=== PATIENT | female | born 1930 | race African-American/Black ===

== ENCOUNTER 2017-11-15 09:31 | Emergency (ER) | payer OTHER ==
[~2017-11-15] VITALS: Ht 162.6 cm; Wt 65.8 kg
--- NOTE | ~2017-11-15 | EKG ---
[address] [place] [address] [place] [address] ELECTROCARDIOGRAM REPORT Name: DEMOND IRENE Room #: DEP CHRISTOPHER Larson#: [id number] Admission: 11/15/17 Attend Phys: Discharge: 11/15/17 Date of : 34 Report #: [id number] THIS REPORT FOR: //name// [facility] ED Test Date: 2017-11-15 Test Time: 09:40:57 Pat Name: DEMOND IRENE Department: Room: 170 Gender: F Fine Craft Artist: Feliciano OLVERA : 1930 Requested By: Luz Tomlinson Order Number: [id number] MD: Dedrick Don Measurements Intervals [place] Rate: 92 P: 55 CA: 192 QRS: 4 QRSD: 88 T: 8 QT: 344 QTc: 426 Interpretive Statements Sinus rhythm Poor R wave progression Nonspecific ST segment abnormality Compared to ECG 12/05/2012 10:05:25 Sinus tachycardia no longer present Electronically Signed On 11-16-2017 8:16:29 CDT by Dedrick Don [email or web address] <ELECTRONICALLY SIGNED> By: Dedrick Don MD, [facility] 11/16/17 0816 9 9 Dedrick Don MD, [facility] /EPI
[~2017-11-15 09:31] MED LIST: NOHOMEMEDICATIONS
[2017-11-15 09:37] VITALS: BP 154/83
[2017-11-15 10:05] LABS: ABSOLUTE NEUTROPHILS 2.3 thou/uL (1.4-8.2); EOSINOPHILS 3.6 % (0.0-3.0); HEMATOCRIT 40.4 % (37.0-47.0); HEMOGLOBIN 13.6 gm/dL (12.0-15.0); LYMPHOCYTES 32.3 % (24.0-44.0); MCH 31.6 pg (26.0-34.0); MCHC 33.7 g/dL (28.0-37.0); MCV 93.7 fL (80.0-100.0); MONOCYTES 11.5 % (1.0-8.0); PLATELET COUNT 187 thou/uL (150-400); POLYS 51.6 % (36.0-66.0); RBC 4.31 mil/uL (4.20-5.00); RDW 12.9 % (10.5-14.5); WBC 4.4 thou/uL (4.0-11.0)
[2017-11-15 10:12] LABS: ANION GAP 11 mmol/L (7-16); BUN 17 mg/dL (7-18); CALCIUM 9.7 mg/dL (8.5-10.1); CHLORIDE 103 mmol/L (98-107); CO2 25 mmol/L (21-32); GLUCOSE 120 mg/dL (74-106); POTASSIUM 3.9 mmol/L (3.5-5.1); SODIUM 139 mmol/L (136-145)
[2017-11-15 10:20] LABS: SGOT 20 U/L (15-37); SGPT 21 U/L (30-65); TOTAL BILIRUBIN 0.4 mg/dL (<0.1-1.0); TOTAL PROTEIN 7.8 g/dL (6.4-8.2); TROPONIN-I <0.06 ng/mL (<0.06)
[2017-11-15 11:02] LABS: URINE BILIRUBIN NEGATIVE (Negative); URINE BLOOD NEGATIVE (Negative); URINE CLARITY CLEAR; URINE COLOR YELLOW; URINE GLUCOSE-RANDOM* NEGATIVE (Negative); URINE KETONES NEGATIVE (Negative); URINE NITRITE-REFLEX NEGATIVE (Negative); URINE PROTEIN (DIPSTICK) NEGATIVE (Negative); URINE SPECIFIC GRAVITY 1.015 (1.005-1.035); URINE UROBILINOGEN 0.2 E.U./dl (0.2-1.0)
[2017-11-15 11:06] LABS: URINE LEUKOCYTES-REFLEX TRACE (Negative)
[2017-11-15 12:14] VITALS: BP 146/71
== END 2017-11-15 12:16 | disposition left against medical advice (07) ==
LOC: ER 09:31 → EROBS 11:23 → ER 11:23
PROVIDERS: Student in an Organized Health Care Education/Training Program
DX: R55 Syncope and collapse (principal); Z88.1 Allergy status to other antibiotic agents; Z88.8 Allergy status to other drugs, medicaments and biological substances